=== PATIENT | male | born 1985 | race Caucasian/White ===

== ENCOUNTER 2019-02-20 18:53 | Emergency (ER) | payer OTHER, MEDICAID ==
[~2019-02-20] VITALS: Ht 185.4 cm; Wt 84.4 kg
[2019-02-20] MEDS ORDERED: SODIUM CHLORIDE 0.9% 1,000 ML IV ONE (19:07)
[2019-02-20 19:47] LABS: Albumin 4.2 g/dL (3.4-5.0); Anion Gap 11 (5-15); Blood Alcohol < 3.0 mg/dL (0-5); Blood Urea Nitrogen 11 mg/dL (7-18); Calcium 8.7 mg/dL (8.5-10.1); Carbon Dioxide 24 mmol/L (21-32); Chloride 102 mmol/L (98-107); Glucose 90 mg/dL (74-106); Potassium 3.5 mmol/L (3.5-5.1); Sodium 137 mmol/L (136-145)
[2019-02-20 19:49] LABS: Alanine Aminotransferase 28 U/L (16-61); Aspartate Aminotransferase 15 U/L (15-37); BUN/Creatinine Ratio 7.6; GFR African American 73 mL/min; GFR Non-African American 60 mL/min
[2019-02-20 19:51] LABS: Alkaline Phosphatase 59 U/L (45-117); Bilirubin, Total 1.2 mg/dL (0.2-1.0); Total Protein 8.6 g/dL (6.4-8.2)
[2019-02-20 20:04] LABS: Basophils # (auto) 0.1 uL; Basophils % (auto) 0.5 % (0.0-2.0); Eosinophils # (auto) 0.6 uL; Eosinophils % (auto) 5.3 % (0.0-7.0); Hematocrit 49.4 % (41.0-53.0); Hemoglobin 17.1 g/dL (13.5-17.5); Lymphocytes # (auto) 1.9 uL; Lymphocytes % (auto) 17.7 % (10.0-50.0); Mean Corpuscular Hemoglobin 31.4 pg (28.0-32.0); Mean Corpuscular Hgb Conc. 34.6 g/dL (32.0-36.0); Mean Corpuscular Volume 90.6 fL (80.0-100.0); Monocytes # (auto) 1.3 uL; Monocytes % (auto) 12.6 % (0.0-12.0); Neutrophils # (auto) 6.8 uL; Neutrophils % (auto) 63.9 % (37.0-80.0); Nucleated Red Blood Cells % 0.3 %; Platelet Count (auto) 210 10^3/uL (140-450); Red Blood Cells 5.46 10^6/uL (4.5-5.90); Red Cell Distribution Width 13.1 % (11.8-14.3); White Blood Cell 10.7 10^3/uL (4.4-10.8)
[2019-02-20] MEDS ORDERED: MECLIZINE HCL 25 MG TAB PO ONE (21:15)
[2019-02-20 21:44] VITALS: BP 147/96
[2019-02-20 22:52] LABS: Alcohol, Urine < 3.0 mg/dL (0-5); Amphetamine Screen, Urine POSITIVE (NEGATIVE); Cocaine Screen, Urine POSITIVE (NEGATIVE); Phencyclidine Screen, Urine NEGATIVE (NEGATIVE)
[2019-02-20 23:06] LABS: Barbiturate Scree,Urine NEGATIVE (NEGATIVE); Benzodiazephine Screen, Urine NEGATIVE (NEGATIVE); Cannabinoid Screen, Urine NEGATIVE (NEGATIVE); Opiate Scree,Urine NEGATIVE (NEGATIVE)
== END 2019-02-20 23:21 | disposition home or self-care (01) ==
LOC: EDBD 18:53 → EDUNIT# 18:53 → ER 18:58
DX: R42 Dizziness and giddiness (principal); M62.838 Other muscle spasm; I10 Essential (primary) hypertension
CPT/HCPCS: 36415; 70450; 80053; 80307; 80320; 85025; 93005; 94761; 96360; 96361; 99284; J7030; J8597